=== PATIENT | male | born 1945 | race Caucasian/White ===

== ENCOUNTER → 2019-02-27 13:07 | Outpatient (CLI) | payer MEDICARE, OTHER ==
--- NOTE | 2019-03-01 13:29 | EC ---
PATIENT:GRACIE BORJA DATE OF SERVICE: 02/27/19 SEX: M MEDICAL RECORD: [id number] DATE OF : 49 LOCATION:[facility] AGE OF PATIENT: 74 ADMISSION DATE: 02/27/19 REFERRING PHYSICIAN: INTERPRETING PHYSICIAN: MAMTA SCHUMACHER MD ECHOCARDIOGRAM REPORT ECHO CHARGES 4 ECHO COMPLETE Date: 02/27/19 CLINICAL DIAGNOSIS: H/O CAD/CABG/HTN ECHOCARDIOGRAPHIC MEASUREMENTS (adult normal given) AC root (d.<3.7cm) 3.6 cm LV Septum d (<1.2 cm> 1.1 cm Valve Excursion 1.8 cm LV Septum (systole) 1.8 cm Left Atria (s.<4.0cm> 5.0 cm LVPW d(<1.2cm) 1.4 cm RV (d.<2.3cm) 3.4 cm LVPW (sytole) 2.2 cm LV diastole(<5.6CM) 4.9 cm MV E-F(>70mm/sec) cm LV systole 2.8 cm LVOT Diameter 1.7 cm MV exc.(>10mm) cm Est.ejection fraction (50-75%) % DOPPLER: LVIT cm/sec A 62.0 cm/sec E 64.0 cm/sec LA cm/sec RVSP 28.0 mmHg LVOT 110 cm/sec AOP1/2T m/s Asc. Ao 138 cm/sec RVOT 58.0 cm/sec RA cm/sec PA 97.0 cm/sec AV Gradient Peak 7.7 mmHg AV Mean 3.9 mmHg AV Area 1.8 cm MV Gradient Peak 3.0 mmHg MV Mean 1.0 mmHg MV Area cm COMMENTS: OP - HC [employer]: 1 [employer] Apprentice: 1 Dr. Schumacher TAPE# PACS Pericardial Effusion N DATE OF SERVICE: PROCEDURE: Echocardiogram FINDINGS: 1. Left ventricular chamber size is within normal limits. Left ventricular systolic function is lower limits of normal at 45% to 50%. 2. Left atrium is enlarged at 5.0 cm. Right atrium and right ventricular chamber sizes are as well mildly dilated. 3. Valvular structures have normal structure and motion. ECHOCARDIOGRAM REPORT [id number] GRACIE BORJA 4. Doppler interrogation reveals [id number] mitral regurgitation, mild tricuspid regurgitation, no other valvular insufficiency or stenosis. Pulmonary systolic pressure is estimated 28 mmHg. 5. No evidence of pericardial effusion or left ventricular thrombus. TRANSINT:[id number] Voice Confirmation ID: [id number] DOCUMENT ID: [id number] MAMTA SCHUMACHER MD at 1329 CC: [id number] DICTATION DATE: 02/27/19 1635 [employer]: 02/28/19 0116 DEP CLI 02/27/19 [place] [id number] [place] [id number]
== END | disposition home or self-care (01) ==
LOC: D.HCCECHO 13:00
PROVIDERS: ATTEND Internal Medicine Interventional Cardiology
DX: I08.8 Other rheumatic multiple valve diseases (principal)